=== PATIENT | male | born 1955 ===

== ENCOUNTER 2019-10-14 19:05 | Outpatient (CLI) | payer SELFPAY | END 2019-10-14 19:06 | disposition EMS.NT | LOC: EMS 19:05 | PROVIDERS: ATTEND Surgery | DX: S01.01XA Laceration without foreign body of scalp, initial encounter (principal); W21.04XA Struck by golf ball, initial encounter; Y92.39 Other specified sports and athletic area as the place of occurrence of the external cause ==